=== PATIENT | female | born 1975 | race Two or more races ===

== ENCOUNTER 2025-01-07 09:21 | Outpatient (RCR) | payer MEDICAID, SELFPAY ==
--- NOTE | 2025-01-07 09:57 | CTCFLWUP_ITS ---
[facility] [address] [place], [place] [address] FOLLOW-UP NOTE Date: 01/07/2025 MR#: [id number] Name: CLAUDINE PATTERSON : 1975 Dx: C07 Malignant neoplasm of parotid gland Identification. 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 parotidectomy performed by Dr. Sebastian Cardenas 02/26/2023. Post op XRT 5600 centigray completed 06/24/2023 by VMAT. Post XRT PET scan 11/29/2023 performed at [facility] reveals mildly hypermetabolic 2.7 the postop and radiated site most likely radiation and surgical changes according to radiologist. No evidence of mets. Patient experiencing the dryness of the treatment related side effects that she was told initially. Otherwise well. As I examined patient today there is the expected side effects of radiation therapy of dryness of skin and mucosal area. No sign of any recurrence. Assessment. 1. History of stage IIa mucoepidermoid carcinoma left parotid status post superficial parotidectomy 02/26/2023 with close margins 2. Postop XRT 5600 cGy completed 06/24/2023. 3. Posttreatment PET 11/29/2023 mildly hypermetabolic local site likely treatment side effects. 4. No sign of recurrence oral cavity or neck. 5. Sees Dr. Monroe medical oncologist in a few weeks. 6. I will see her back in 6 months. Electronically signed by: Vargas Parekh M.D. 01/07/2025 9:55 AM
== END 2025-01-08 23:59 | disposition home or self-care (01) ==
LOC: SCTC 09:21
PROVIDERS: PCP Obstetrics & Gynecology; Referring Provider Obstetrics & Gynecology; Visit Provider Radiology Therapeutic Radiology
DX: Z08 Encounter for follow-up examination after completed treatment for malignant neoplasm (principal); Z85.858 Personal history of malignant neoplasm of other endocrine glands; Z90.09 Acquired absence of other part of head and neck; Z92.3 Personal history of irradiation
CPT/HCPCS: 99213; G0463

== ENCOUNTER 2025-02-02 10:57 | Outpatient (RCR) | payer MEDICAID, SELFPAY ==
--- NOTE | 2025-02-28 20:16 | CTCFLWUP_ITS ---
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 parotidectomy performed by Dr. Sebastian Cardenas 02/26/2023.Post op XRT 5600 centigray completed 06/24/2023 by VMAT. ONCOLOGY HISTORY: DIAGNOSIS: Stage II (T2, N0, cM0) mucoepidermoid carcinoma of the left parotid Status post left superficial parotidectomy (02/26/2023) S/p adjuvant radiation therapy to left face (05/16/2023 - 06/24/2023) Diabetes, type II REASON FOR TODAY?S VISIT: This is office follow-up visit. Ms. Patterson is here at [facility]. She is clinically doing well. Denies any complaints. Denies any cough, chest pain, abdominal pain or leg cramps. She does have mild dryness of mouth for which she is drinking water frequently. She denies any weight loss or loss of appetite. Ambulating well without any help. 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 parotidectomy performed by Dr. Sebastian Cardenas 02/26/2023.Post op XRT 5600 centigray completed 06/24/2023 by [facility]MAT. TREATMENT HISTORY: Care?Plan Start?Date Cycle Day Intent HISTORY OF PRESENT ILLNESS: Claudine Patterson is a 49-year-old S[place] speaking female with history of hypertension, diabetes has the following oncology history. January 2023: Patient started feeling a lump in the left preauricular region. She had ultrasound done at [facility] and subsequently referred to [facility]. 02/26/2023: Ms. Patterson had a left superficial parotidectomy by oral maxillofacial surgeon Dr. Sebastian Walker of [place]. 05/16/2023 - 06/24/2023: Ms. Patterson had 5600 cGy radiation therapy in 28 fractions in the adjuvant setting to the left side of the face. 11/29/2023: PET/CT scan OTHER MEDICAL HISTORY/CONDITIONS: HTN Diabetes Hyperlipidemia Left?parotidectomy?02/26/2023 FAMILY HISTORY: Patient?denies?family?cancer?history. 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 atorvastatin - 20 mg 1 tab Daily 2. diclofenac sodium - 75 mg 1 tab Twice a Day 3. ferrous sulfate - 325 mg (65 mg iron) 1 tab Daily 4. gemfibrozil - 600 mg 1 tab Twice a Day 5. glimepiride - 4 mg 1 tab Daily 6. ibuprofen - 800 mg 1 tab Three times a day 7. Januvia - 100 mg 1 tab Daily 8. lisinopril - 20 mg 1 tab Daily 9. metFORMIN - 1,000 mg 1 tab Twice a Day 10. naproxen - 500 mg 1 tab Every 12 Hours Medications Last Reconciled by Santa Maddox MA on 02/02/2025 ALLERGIES: No Known Drug Allergies REVIEW OF SYSTEMS: A complete 14-point review of systems was performed and is negative except as noted in interval history. PHYSICAL EXAMINATION: VITAL SIGNS: Temperature?98.2, B/P?157/92, Oxygen?Saturation?98% Weight?178?lbs (Change?since?01/07/25:?3?lbs) PAIN: 0 - No pain GENERAL APPEARANCE: Appears well, in no apparent distress, appropriately interactive. HEENT: Normocephalic, no temporal wasting, normal conjunctiva, no scleral icterus, normal hearing, lips without lesions, neck normal range of motion. CARDIOVASCULAR: Not assessed. PULMONARY: Normal respiratory effort, no respiratory distress or use of accessory muscles, speaking in full sentences, no tachypnea. EXTREMITIES: No pedal edema or cyanosis. SKIN: Normal skin appearance. NEUROLOGIC: Alert and oriented x4. PSHYCHIATRIC: Appropriate affect, mood normal, behavior normal, intact thought and speech. LABORATORY DATA: I have personally reviewed and interpreted each of the patient?s relevant lab tests, abnormal findings are below: Date ASSESSMENT/PLAN: 1. 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 Margins close. 2. Status post left superficial parotidectomy (02/26/2023) .Ms. Patterson is clinically doing well with mild dryness of the mouth. 3. Ms. Patterson states that she gets regular mammograms. Never had screening colonoscopy. 4. Ms. Patterson completed adjuvant radiation therapy to the left side of the face on 06/24/2023. 5. 6. Diabetes, type II 1. Refer to gastroenterology for screening colonoscopy 2. I will see her back in clinic in 6 months with labs for follow-up. ORDERS: Order # Description [id number] + Comprehensive Metabolic Panel - 12 + CBC with Auto Diff + MD Follow Up 6 Month RETURN TO CLINIC: BILLING AND COMPLIANCE: I reviewed external records from providers outside my specialty as summarized above. I spent a total of 50 minutes on this patient?s care on the day of their visit excluding time spent related to any billed procedures. This time includes time spent with the patient as well as time spent documenting in the medical record, reviewing patients records and tests, obtaining history, placing orders, communicating with other healthcare professionals, counseling the patient, family or caregiver, and/or care coordination for the diagnoses above. Electronically Signed by: Lev Monroe MD T: 8:13 PM CC: PCP: Tj Green Referring: Lev Monroe This document was completed utilizing speech recognition software. Grammatical errors, random word insertions, pronoun errors, and incomplete sentences are an occasional consequence of this system due to software limitations, ambient noise, and hardware issues. Any formal questions or concerns about the content, text or information contained within the body of this dictation should be directly addressed to the provider for clarification.
== END 2025-02-08 23:59 | disposition home or self-care (01) ==
LOC: SCTC 10:57
PROVIDERS: PCP Family Medicine; Referring Provider Internal Medicine Hematology & Oncology; Visit Provider Internal Medicine Hematology & Oncology
DX: C07 Malignant neoplasm of parotid gland (principal); R68.2 Dry mouth, unspecified; Z92.3 Personal history of irradiation; Z90.89 Acquired absence of other organs; E11.9 Type 2 diabetes mellitus without complications
CPT/HCPCS: 99213; G0463

== ENCOUNTER 2025-07-07 08:48 | Outpatient (RCR) | payer MEDICAID, SELFPAY ==
--- NOTE | 2025-07-07 11:51 | CTCFLWUP_ITS ---
[facility] [address] [place], [place] [address] FOLLOW-UP NOTE Date: 07/07/2025 MR#: [id number] Name: CLAUDINE PATTERSON : 1975 Dx: C07 Malignant neoplasm of parotid gland Identification. 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 Sebastian Cardenas 02/26/2023. Postop XRT 6600 cGy completed 06/24/2023 by [facility]MAT. Postop PET scan 11/29/2023 performed at [facility] reveals mildly hypermetabolic 2.7 postop indurated site most likely radiation surgical changes. Experiencing the dryness, taste changes since the radiation. Exam under oral cavity neck and left ear and saw no pathology. Will see her again in 6 months time. Electronically signed by: Vargas Parekh M.D. 07/07/2025 11:49 AM
== END 2025-07-11 23:59 | disposition home or self-care (01) ==
LOC: SCTC 08:48
PROVIDERS: PCP Obstetrics & Gynecology; Referring Provider Family Medicine; Visit Provider Radiology Therapeutic Radiology
DX: C07 Malignant neoplasm of parotid gland (principal); Z92.3 Personal history of irradiation
CPT/HCPCS: 99213; G0463

== ENCOUNTER 2025-08-09 10:46 | Outpatient (RCR) | payer MEDICAID, SELFPAY | END 2025-08-10 23:59 | disposition home or self-care (01) | LOC: SCTC 10:46 | PROVIDERS: PCP Obstetrics & Gynecology; Referring Provider Obstetrics & Gynecology; Visit Provider Internal Medicine Hematology & Oncology | DX: C07 Malignant neoplasm of parotid gland (principal); Z90.89 Acquired absence of other organs; Z92.3 Personal history of irradiation; R73.9 Hyperglycemia, unspecified; R74.8 Abnormal levels of other serum enzymes | CPT/HCPCS: 99212; G0463 ==

== ENCOUNTER → 2025-08-11 | Outpatient (CLI) | payer MEDICAID, SELFPAY ==
--- NOTE | 2025-08-11 09:30 | XR_ITS ---
Examination: Abdomen sonogram, Limited Date and time of exam: August 11, 2025, 0924 hours INDICATIONS: Diagnosis malignant neoplasm parotid gland 2022, staging Technique: Real-time wilkinson scale transabdominal sonographic images of the upper abdomen obtained. Findings: Normal gallbladder. Normal common bile duct 0.4 cm Pancreatic head 2.2 cm Liver 18.1 cm fatty infiltration Normal hepatopedal portal venous flow Patent IVC IMPRESSION: Normal gallbladder Mild to moderate hepatomegaly fatty infiltration no focal liver lesions
== END | disposition home or self-care (01) ==
LOC: CDIM 09:10
PROVIDERS: PCP Nurse Practitioner Family; Referring Provider Internal Medicine Hematology & Oncology; Visit Provider Internal Medicine Hematology & Oncology
DX: K76.0 Fatty (change of) liver, not elsewhere classified (principal); C07 Malignant neoplasm of parotid gland
CPT/HCPCS: 76705

== ENCOUNTER 2025-09-30 11:55 | Day surgery (SDC) | payer MEDICAID, SELFPAY ==
[2025-09-29 11:07] VITALS: BMI 29.6
[2025-09-30] VITALS (10 sets, daily range): BP systolic 151–176; BP diastolic 89–107; PULSE 81–94; RESP 11–18; TEMP 36.6–37.1; O2SAT 92–100; BMI 29.4
[2025-09-30] MEDS: RINGERS LACTATED 1000 ML 1,000 ML 20 ML IV (13:56)
[2025-09-30] MEDS: MIDAZOLAM INJ 1 MG/ML VIAL 2 ML (ASD USE ONLY) 2 MG IVP (14:05)
[2025-09-30] MEDS: fentaNYL CIT INJ 50 mCg/ML AMP 2ML (ASD USE ONLY) IVP (14:05)
== END 2025-09-30 15:05 | disposition home or self-care (01) ==
PROVIDERS: PCP Nurse Practitioner Family; Referring Provider Surgery; Visit Provider Surgery
PROC: 0DBE8ZX Excision of Large Intestine, Via Natural or Artificial Opening Endoscopic, Diagnostic (ICD-10-PCS; CPT 45380; principal; 2025-09-30 13:00)
DX: Z12.11 Encounter for screening for malignant neoplasm of colon (principal); E11.9 Type 2 diabetes mellitus without complications; Z79.84 Long term (current) use of oral hypoglycemic drugs
CPT/HCPCS: 45378; A4649; J1200; J2250; J3010; J7120